=== PATIENT | male | born 1990 | race Caucasian/White ===

== ENCOUNTER 2018-08-21 09:30 | Outpatient (RCR) | payer OTHER, SELFPAY ==
--- NOTE | 2018-08-07 18:32 | HP.OTEVAL ---
Patient's Visit Information MARLON GLASS is a 27 year old M, referred to Occupational Therapy by LORRAINE CHANG, with a diagnosis of sprain R wrist. Date of Evaluation: 08/06/18 Occupational Therapist: Dafne Dee - Subjective Subjective: Pt seen for initial occupational therapy evaluation after R wrist sprain 06/12/18 attempting to turn a wooten in a [employer] door that was jammed while at work. Pt is R hand dominent. Pt indep w/ BADLs/IADLs just discomfort and pain with movement. Pt went to hand specialist in [place] stated x-rays and wrist sprang just needs time to heal. Pt continues to have increased pain. Pt states was in brace for 6 wks and now only wears brace while at work. Pt on light duty at work for time being. 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 Pt states unable to open jars, was trying to open salsa jar and unable. Pt has difficult time completing tasks around the house with use of R hand/wrist. Pt demo increased pain R wrist. Pt would benefit from direct occupational therapy services to increase R hand strength to complete functional living tasks independently and decrease pain with movement of R hand/wrist. Rehabilitation Potential: Excellent - Anticipated Interventions Anticipated Interventions: A/AAROM/PROM, Strengthening, Edema Control, Massage, Modalities, Orthoses, Joint Protection/Energy Conservation, ADL Training, Education re assistive Equipment, Education re Self Massage Techniques, Home Program - Visit Plan Frequency: 2-3x /Week Duration: 6 visits General Plan: decrease pain R wrist, increase R wrist strength and ability to complete functional living tasks independently, educated on HEP TEXT: Thank you for the opportunity to evaluate your patient. For Medicare and Medicare HMO plans, please review the plan of care and approve it. It will need to be FAXED BACK to us at [phone] for Medicare purposes. Please let me know if there are questions or concerns regarding this plan of care. Physician Signature: Date:
== END 2018-08-21 19:00 | disposition home or self-care (01) ==
LOC: OT 09:30
DX: S63.501D Unspecified sprain of right wrist, subsequent encounter (principal)
CPT/HCPCS: 97035; 97110; 97140; 97165; 97166; 97530